=== PATIENT | female | born 1940 | race Caucasian/White ===

== ENCOUNTER 2016-07-13 05:36 | Day surgery (SDC) | payer OTHER ==
[2016-07-12 17:34] VITALS: BMI 33.6
[2016-07-13] MEDS ORDERED: ceFAZolin SODIUM 1 GM VIAL ONE (07:27)
[2016-07-13] MEDS ORDERED: KETOROLAC TROMETHAMINE 30 MG/1 ML VIAL ONE (07:27)
[2016-07-13] MEDS ORDERED: ONDANSETRON 4 MG/2 ML VIAL ONE ×2 (07:27→13:33)
[2016-07-13] MEDS ORDERED: SUCCINYLCHOLINE CHLORIDE 200 MG/10 ML VIAL ONE (07:27)
[2016-07-13] MEDS ORDERED: SODIUM CHLORIDE 0.9% P/F 10 ML VIAL IJ ONE (07:27)
[2016-07-13] MEDS ORDERED: ePHEDrine SULFATE 50 MG/1 ML AMPULE ONE (07:27)
[2016-07-13] MEDS ORDERED: DEXAMETHASONE SOD PHOSPHATE 4 MG/1 ML VIAL ONE (07:27)
[2016-07-13] MEDS ORDERED: ROCURONIUM BROMIDE 50 MG/5 ML VIAL ONE (07:27)
[2016-07-13] MEDS ORDERED: PHENYLEPHRINE HCL 10 MG/1 ML SINGLE DOSE VIAL ONE (07:27)
[2016-07-13] MEDS ORDERED: PROPOFOL 20 ML ONE (07:27)
[2016-07-13] MEDS ORDERED: MIDAZOLAM HCL 2 MG/2 ML SINGLE DOSE VIAL ONE (07:28)
[2016-07-13] MEDS ORDERED: ceFAZolin SODIUM 1 GM VIAL IVPB ONE (08:20)
[2016-07-13] MEDS ORDERED: NEOSTIGMINE METHYLSULFATE 0.5 MG/ML - 10 ML MDV ONE (10:32)
[2016-07-13] MEDS ORDERED: GLYCOPYRROLATE 0.2 MG/1 ML VIAL ONE (10:32)
[2016-07-13] MEDS ORDERED: BUPIVACAINE HCL/PF 0.5% (5MG/ML) 10 ML VIAL IJ ONE (10:51)
--- NOTE | 2016-07-13 11:12 | HP ---
History & Physical Update - History History: No Change - Physical Physical: No Change - Assessment Assessment: No Change - Plan Plan: No Change
--- NOTE | 2016-07-13 11:19 | OP ---
Operative Note - Note: Operative Date: 07/13/16 Pre-Operative Diagnosis: Incarcerated ventral, (left sided spigelian) hernia. Operation: Repair of incarcerated ventral , ( left spigelian ) hernia , with ventralite mesh , and lysisof adhesions. Findings: Incarcerated left sided ventral, ( Spigelian) hernia, with incarcerated omentum , of significant amount within the hernial sac. Omental and peritoneal adhesions. Implants: Ventralite mesh. Surgeon: Rosalina Castanon Anesthesiologist/HOSPITALITY ASSOCIATE: Shirley Silva Anesthesia: General Specimens Removed: Hernial sac Estimated Blood Loss (mls): 10 Operative Report Dictated: Yes
[2016-07-13] MEDS ORDERED: oxyCODONE HCL 5 MG TABLET PO PRN (11:45)
[2016-07-13] MEDS ORDERED: ONDANSETRON 4 MG/2 ML VIAL IVPUSH PRN (11:45)
[2016-07-13] MEDS ORDERED: BSS (NA/CA/MG/K) BALANCED SALT SOLUTION OPHTH SOLN 15 ML BOTTLE ONE (13:28)
[2016-07-13 14:26] VITALS: TEMP 97.4
[2016-07-13 17:15] VITALS: BP 152/96; PULSE 95
--- NOTE | 2016-07-16 12:03 | OP ---
DATE OF OPERATION: 07/13/2016 PREOPERATIVE DIAGNOSIS: Incarcerated ventral hernia (left-sided Spigelian hernia). POSTOPERATIVE DIAGNOSIS: Incarcerated left-sided ventral (Spigelian) hernia with extensive adhesions. SURGEON: Roni Castanon MD ANESTHESIA: General. OPERATIVE PROCEDURE: Repair of incarcerated ventral (left Spigelian) hernia with Ventralight mesh and lysis of adhesions. OPERATIVE DESCRIPTION: This 75-year-old woman had a mass in the left side of her abdomen going toward the flank for the last 2-3 years, increasing in size. A CAT scan suggested this was a Spigelian hernia. This was very lateral and was not reducible. The patient was brought in for laparoscopic/open repair of the incarcerated Spigelian hernia. Consent was obtained. Risks, benefits, and complications had been discussed with the patient. The patient was brought to the operating room. General anesthesia was administered. Booker catheter was placed in the bladder and was removed right after the procedure. A timeout was called. The left side of the abdomen was elevated with a couple of sheets and a bag. The abdomen was painted and draped. The patient was given 1 g of Ancef. Incision was made at the infraumbilical portion of the umbilicus, deepened through the skin, subcutaneous tissue and the linea alba. The peritoneum was incised and a 10-12-mm laparoscopic trocar of the Cassia type was introduced into the abdominal cavity. The abdomen was inflated with carbon dioxide at 6 L per minute with measured intraabdominal pressure of 15 mmHg. A 5-mm, 30 degree camera was introduced into the abdominal cavity. On examination, there were some omental adhesions to the anterior abdominal wall. A large piece of omentum and fat was noted entering the defect in the lateral lower quadrant of the abdomen and getting into the hernia sac. Another 5-mm trocar was inserted in the midline below the umbilicus , between the umbilicus and the pubic symphysis, and a third 5-mm trocar was inserted in the epigastric region in the midline. The content of the hernia, which was the omentum, was then gradually reduced into the abdominal cavity. There was a significant amount of fat and omentum within the hernia sac. After reduction, a large hernial sac, that was noted dissecting the abdominal wall and a large defect about the lateral edge of the rectus.. The peritoneum was dissected around the edge of the hernia defect and the sac was completely excised and sent to Pathology. This was removed through the abdominal cavity. The large mesh was then used to cover the defect. This large mesh, 10 x 8-cm Ventralight mesh, was used to cover the defect. Prior to this, the defect was approximated with no. 1 Prolene sutures passed through the skin. This was passed under the skin, creating a tunnel, and then introducing on either side of the defect, through the suture passer, bringing the sutures into the abdominal cavity and then passed across to the opposite side and brought out through the abdominal cavity and then passed under the skin so that a complete buckland was made. Two such sutures were obtained and were 2 cm apart. Once this was done, the abdomen was deflated and the abdominal defect was repaired with a no. 1 Prolene suture, bringing the two edges together. Once this was done, the Ventralight mesh was rolled , and introduced into the abdomen,such that the balloon that was to be inflated,to keep the mesh against the abdominal wall. This was rolled and introduced through the 10-mm defect into the peritoneal cavity. With a suture passer, , the central portion of the distendable balloon was brought out through the abdominal cavity through the center of the defect. The balloon on the undersurface of the mesh was then inflated. It was expanding the mesh and holding it against the anterior abdominal. The mesh was then anchored to the abdominal wall with interrupted ProTack joe, one on the peripheral surface of the mesh, another between the center and the periphery of the mesh in a circular fashion. The mesh was adequately placed against the abdominal wall with enough overlay on either side, well beyond the edge of the defect. The inflatable balloon was then completely withdrawn through the umbilical report. The repair was adequately performed. There were omental adhesions to the anterior abdominal wall which were then lysed with the Endoscissors. Two more 5-mm tackers had to be placed in the left side of the abdomen, one in the left upper quadrant , and left lower quadrant of the abdomen to facilitate placement of the ProTack sutures. Once the mesh was adequately placed, the rest of the abdomen was normal. The omentum was then placed over the small bowel. The instruments were withdrawn under direct vision. The linea alba and midline was approximated with interrupted and [id number] 2-0 Vicryl sutures. Marcaine 0.5% was injected into the wound. The skin was approximated with buried interrupted 4-0 Biosyn sutures. Dermabond was applied at the skin edges. The patient tolerated the procedure well, was extubated and sent to the recovery room in satisfactory and stable condition. Amando GONZALEZ/[id number] CC: MD RULA Bailey
--- NOTE | 2016-07-16 13:50 | PATH ---
Surgical Pathology Report Patient Name: SP WELSH [facility]. Rec. #: [id number] /Age/Gender: 1940 (Age: 75) / F Account: [id number] Location: [facility] Taken: 07/13/2016 Received: 07/13/2016 Reported: 07/16/2016 Physicians: Roni Castanon M.D. Specimen(s) Received HERNIA SAC Clinical History Abdominal ventral hernia left spigelian hernia Final Diagnosis SOFT TISSUE, ABDOMINAL WALL, EXCISION: FIBROMEMBRANOUS TISSUE CONSISTENT WITH HERNIA SAC, AND BENIGN ADIPOSE TISSUE. Electronically Signed Lj Bartholomew M.D. Gross Description Received in formalin, labeled "hernia sac," is a 5.2 x 4.3 x 0.9 cm aggregate of longoria thomas to yellow, irregular portions of fibromembranous tissue and attached fat. No discrete masses or areas of hemorrhage or necrosis are identified. Customer Counter Associate sections are submitted in one cassette. 07/13/201607/13/2016
== END 2016-07-13 17:30 | disposition home or self-care (01) ==
LOC: JASU-SURG 05:36
PROVIDERS: ATTEND Specialist
PROC: 0WUF4JZ Supplement Abdominal Wall with Synthetic Substitute, Percutaneous Endoscopic Approach (ICD-10-PCS; principal; 2016-07-13 08:00)
DX: K43.6 Other and unspecified ventral hernia with obstruction, without gangrene (principal)
CPT/HCPCS: 88302-TC; 94760

== ENCOUNTER 2016-08-09 15:56 | Emergency (ER) | payer OTHER ==
--- NOTE | 2016-08-09 16:06 | PDOC ---
Rapid Medical Evaluation Time Seen by Provider: 08/09/16 16:03 Medical Evaluation: Allergies Allergy/AdvReac Type Severity Reaction Status Date / Time No Known Allergies Allergy Verified 07/12/16 17:30 08/09/16 16:03 I have performed a brief in-person evaluation of this patient. The patient presents with a chief complaint of: s/p hernia, now with LLQ abdominal pain Pertinent physical exam findings: tender LLQ I have ordered the following: labs and CT abd/pelvis The patient will proceed to the ED for further evaluation
[2016-08-09 16:09] VITALS: TEMP 98.3; BMI 33.6
[2016-08-09] MEDS ORDERED: SODIUM CHLORIDE 1,000 ML IV SCH (16:15)
--- NOTE | 2016-08-09 16:59 | PDOC ---
History of Present Illness - General History Source: Patient Exam Limitations: No Limitations - History of Present Illness Initial Comments: 08/09/16 17:18 75-year-old female with history of hypertension, status post left ventral hernia repair on July 13 presents to the emergency department for 2 weeks of burning left lower quadrant pain worse with movement. Denies nausea, vomiting, dysuria. Had a last bowel movement movement today. Denies fevers or chills or sick contacts. Patient reports a constant burning pain. Denies dysuria. <Yong Buckley - Last Filed: 08/09/16 20:28> - General History Source: Patient Exam Limitations: No Limitations <Pierre Ko - Last Filed: 08/09/16 21:22> - General Chief Complaint: Pain Stated Complaint: PCP SENT, PAIN Time Seen by Provider: 08/09/16 16:03 Past History <Yong Buckley - Last Filed: 08/09/16 20:28> - Past Medical History Anemia: No Asthma: No Cancer: No Cardiac Disorders: No CVA: No COPD: No CHF: No Dementia: No Diabetes: No GI Disorders: No Disorders: No HTN: Yes Hypercholesterolemia: No Liver Disease: No Seizures: No Thyroid Disease: No - Surgical History Abdominal Surgery: Yes (HERNIA) Cholecystectomy: Yes - Psycho/Social/Smoking Cessation Hx Anxiety: No Suicidal Ideation: No Smoking Status: Yes Smoking History: Former smoker Have you smoked in the past 12 months: No Number of Cigarettes Smoked Daily: 0 If you are a former smoker, when did you quit?: 40 years ago Information on smoking cessation initiated: No Hx Alcohol Use: No Drug/Substance Use Hx: No Substance Use Type: None <Pierre Ko - Last Filed: 08/09/16 21:22> - Past Medical History Allergies/Adverse Reactions: Allergies Allergy/AdvReac Type Severity Reaction Status Date / Time No Known Allergies Allergy Verified 08/09/16 16:04 Home Medications: Ambulatory Orders Losartan Potassium [Cozaar -] 25 mg PO DAILY 07/12/16 Metoprolol Succinate [Toprol Xl] 100 mg PO DAILY 07/12/16 Ibuprofen [Motrin -] 600 mg PO TID PRN #21 tablet 08/09/16 Review of Systems - Review of Systems Able to Perform ROS?: Yes Comments:: 08/09/16 17:19 GENERAL/CONSTITUTIONAL: No fever or chills. No weakness. HEAD, EYES, EARS, NOSE AND THROAT: No change in vision. No ear pain or discharge. No sore throat. CARDIOVASCULAR: No chest pain or shortness of breath. RESPIRATORY: No cough, wheezing, or hemoptysis. GASTROINTESTINAL: (+) abdominal pain, No nausea, vomiting, diarrhea or constipation. GENITOURINARY: No dysuria, frequency, or change in urination. MUSCULOSKELETAL: No joint or muscle swelling or pain. No neck or back pain. SKIN: No rash NEUROLOGIC: No headache, vertigo, loss of consciousness, or change in strength/ sensation. ENDOCRINE: No increased thirst. No abnormal weight change. HEMATOLOGIC/LYMPHATIC: No anemia, easy bleeding, or history of blood clots. ALLERGIC/IMMUNOLOGIC: No hives or skin allergy. <Yong Buckley - Last Filed: 08/09/16 20:28> *Physical Exam - Vital Signs Last Vital Signs Temp Pulse Resp BP Pulse Ox 98.3 F 71 18 176/88 92 L 08/09/16 16:05 08/09/16 16:05 08/09/16 16:05 08/09/16 16:05 08/09/16 16:05 - Physical Exam Comments: 08/09/16 17:13 GENERAL: Awake, alert, and fully oriented, in no acute distress HEAD: No signs of trauma EYES: PERRLA, EOMI, sclera anicteric, conjunctiva clear ENT: Auricles normal inspection, hearing grossly normal, nares patent, oropharynx clear without exudates. Moist mucosa NECK: Normal ROM, supple, no lymphadenopathy, JVD, or masses LUNGS: Breath sounds equal, clear to auscultation bilaterally. No wheezes, and no crackles HEART: Regular rate and rhythm, normal S1 and S2, no murmurs, rubs or gallops ABDOMEN: (+) Tenderness to palpation left lower quadrant, no rebounding, no guarding EXTREMITIES: Normal range of motion, no edema. No clubbing or cyanosis. No cords, erythema, or tenderness NEUROLOGICAL: Cranial nerves II through XII grossly intact. Normal speech, normal gait SKIN: (+) Healing well granulated incision sites on her abdomen. Warm, Dry, normal turgor <Yong Buckley - Last Filed: 08/09/16 20:28> - Vital Signs Last Vital Signs Temp Pulse Resp BP Pulse Ox 98.3 F 71 18 176/88 92 L 08/09/16 16:05 08/09/16 16:05 08/09/16 16:05 08/09/16 16:05 08/09/16 16:05 <Pierre Ko - Last Filed: 08/09/16 21:22> ED Treatment Course - LABORATORY CBC & Chemistry Diagram: 08/09/16 16:44 08/09/16 17:42 - ADDITIONAL ORDERS Additional order review: 08/09/16 16:44 RBC 4.59 MCV 88.7 MCHC 34.5 RDW 13.2 MPV 8.0 Neutrophils % 46.2 Lymphocytes % 36.2 Monocytes % 11.4 H Eosinophils % 5.4 H Basophils % 0.8 <Yong Buckley - Last Filed: 08/09/16 20:28> - LABORATORY CBC & Chemistry Diagram: 08/09/16 16:44 08/09/16 17:42 <Pierre Ko - Last Filed: 08/09/16 21:22> Medical Decision Making - Medical Decision Making 08/09/16 20:23 Dr. Castanon paged. 08/09/16 20:28 Dr. Castanon called into the emergency department. Case discussed. <Yong Buckley - Last Filed: 08/09/16 20:28> - Medical Decision Making 08/09/16 16:58 A portion of this note was documented by scribe services under my direction. I have reviewed the details of the note, within reason, and agree with the documentation with the following case summary and management plan written by me. Patient treated in the ED. Nursing notes are reviewed and incorporated into the medical decision-making. Vital signs reviewed. Peripheral IV access obtained by the nurse, laboratory studies are drawn and sent, reviewed and interpreted by myself. Vital Signs Temp Pulse Resp BP Pulse Ox 98.3 F 71 18 176/88 92 L 08/09/16 16:05 08/09/16 16:05 08/09/16 16:05 08/09/16 16:05 08/09/16 16:05 75-year-old female with history of hypertension, status post left ventral hernia repair on July 13 presents to the emergency department for 2 weeks of burning left lower quadrant pain worse with movement. Denies nausea, vomiting, dysuria. Had a last bowel movement movement today. Denies fevers or chills or sick contacts. Patient reports a constant burning pain. Denies dysuria. The skin incision sites appear well healing and there is no evidence of rash or cellulitis at this time. We'll however perform a CAT scan to rule out diverticulitis or competitions from surgery. Patient declines any pain medications at this time. Labs, CAT scan, urinalysis and reassess. 08/09/16 21:21 CT results reviewed. This small amount of adjacent soft tissue thickening that could represent inflammatory changes. Labs reviewed. I discussed the case with Dr. Castanon. States that the inflammatory changes likely secondary to postsurgical. No infection at this time. No white count. He recommended Motrin and follow-up. I given the plan and results of the patient. He verbalizes an understanding agrees with plan. He is likely postoperative pain and inflammation at this time. Return precautions were given including fevers, uncontrollable pain. I discussed the physical exam findings, ancillary test results and final diagnoses with the patient. I answered all of the patient's questions. The patient was satisfied with the care received and felt comfortable with the discharge plan and treatment plan. The patient will call their primary care physician within 24 hours to arrange follow-up and will return to the Emergency Department with any new, persistant or worsening symptoms. <Pierre Ko - Last Filed: 08/09/16 21:22> *DC/Admit/Observation/Transfer - Attestations Scribe Attestion: 08/09/16 17:31 Documentation prepared by Yong Buckley, acting as director medical surgical for Pierre Ko MD. <Yong Buckley - Last Filed: 08/09/16 20:28> - Discharge Dispostion Admit: No <Pierre Ko - Last Filed: 08/09/16 21:22> Diagnosis at time of Disposition: Postoperative pain - Discharge Dispostion Disposition: HOME Condition at time of disposition: Improved - Prescriptions Prescriptions: Ibuprofen [Motrin -] 600 mg PO TID PRN #21 tablet PRN Reason: Abdominal Pain - Referrals Referrals: Tonia Stokes MD [Primary Care Provider] - Rosalina Castanon MD [Staff Physician] - - Patient Instructions Printed Discharge Instructions: DI for Postoperative Pain Additional Instructions: Please take 600 mg ibuprofen every 8 hours for the pain. Please follow up with Dr. Castanon next week. If you have fevers, uncontrollable pain, persistent vomiting, please return to the ER.
[2016-08-09 17:05] LABS: BASOPHIL 0.8 % (0-2.0); EOSINOPHIL 5.4 % (0-4.5); MCH 30.6 pg (25.7-33.7); MCHC 34.5 g/dl (32.0-36.0); MEAN CELL VOLUME 88.7 fl (80-96); NEUTROPHILS 46.2 % (42.8-82.8); PLATELET COUNT 292 K/MM3 (134-434); RDW 13.2 % (11.6-15.6); WHITE BLOOD COUNT 7.1 K/mm3 (4.0-10.0)
[2016-08-09 18:21] LABS: URINE APPEARANCE SLCLOUDY; URINE BILIRUBIN NEGATIVE (NEGATIVE); URINE BLOOD NEGATIVE (NEGATIVE); URINE COLOR STRAW; URINE GLUCOSE (UA) NEGATIVE (NEGATIVE); URINE KETONE NEGATIVE (NEGATIVE); URINE LEUK ESTERASE NEGATIVE (NEGATIVE); URINE NITRITE NEGATIVE (NEGATIVE); URINE PROTEIN NEGATIVE (NEGATIVE); URINE UROBILINOGEN NEGATIVE E.U./dl (0.2-1.0)
[2016-08-09 18:29] LABS: ALBUMIN 3.6 g/dl (3.4-5.0); ALK PHOS 84 U/L (45-117); ANION GAP 10 (8-16); BILIRUBIN,TOTAL 0.5 mg/dL (0.2-1.0); CALCIUM 9.3 mg/dL (8.5-10.1); CO2 25 mmol/L (21-32); CREATININE 0.7 mg/dL (0.55-1.02); GLUCOSE,RANDOM 92 mg/dL (74-106); SGPT/ALT 24 U/L (12-78)
[2016-08-09 18:36] LABS: SGOT/AST 16 U/L (15-37)
[2016-08-09] MEDS ORDERED: IBUPROFEN 600 MG TABLET (FP) PO ONE ×2 (20:53→21:04)
[2016-08-09 21:11] VITALS: BP 148/76; PULSE 74
== END 2016-08-09 21:10 | disposition home or self-care (01) ==
LOC: JER 15:56
DX: G89.18 Other acute postprocedural pain (principal); I10 Essential (primary) hypertension; Z87.891 Personal history of nicotine dependence
CPT/HCPCS: 36415; 74177-TC; 80053; 81003; 83690; 85025; 99285-25

== ENCOUNTER 2017-11-11 09:19 | Day surgery (SDC) | payer OTHER ==
--- NOTE | 2017-11-11 07:16 | HP ---
Admitting History and Physical - Admission Chief Complaint: right knee osteoarthritis x years History of Present Illness: 77-year-old female presenting in regard to her right knee. Long-standing history of right knee osteoarthritis. Patient complains of pain, limited range of motion, difficulty ambulating, and difficulties with activities of daily living. Patient has failed conservative treatment measures including PO medications, activity modification, exercise program, and injections. As patient as failed conservative treatment measures, she wishes to proceed with surgical intervention right partial knee arthroplasty -medial compartment MAKOplasty. History Source: Patient - Past Medical History Cardiovascular: Yes: HTN - Past Surgical History Additional Past Surgical History: See written history & physical. - Smoking History Smoking history: Former smoker Have you smoked in the past 12 months: No Aproximately how many cigarettes per day: 0 If you are a former smoker, when did you quit?: 40 years ago - Alcohol/Substance Use Hx Alcohol Use: No Home Medications - Allergies Allergies/Adverse Reactions: Allergies Allergy/AdvReac Type Severity Reaction Status Date / Time No Known Allergies Allergy Verified 10/31/17 17:34 - Home Medications Home Medications: Ambulatory Orders Losartan Potassium [Cozaar -] 25 mg PO DAILY 07/12/16 Metoprolol Succinate [Toprol Xl] 100 mg PO DAILY 07/12/16 Physical Examination Constitutional: Yes: Well Nourished, No Distress Eyes: Yes: Conjunctiva Clear HENT: Yes: Atraumatic, Normocephalic Neck: Yes: Supple Cardiovascular: Yes: Regular Rate and Rhythm Respiratory: Yes: Regular Gastrointestinal: Yes: Soft ...Rectal Exam: Yes: Deferred Musculoskeletal: Yes: Joint Stiffness (right knee), Joint Swelling (right knee) Assessment/Plan 77-year-old female presenting in regard to her right knee. Long-standing history of right knee osteoarthritis. Patient complains of pain, limited range of motion, difficulty ambulating, and difficulties with activities of daily living. Patient has failed conservative treatment measures including PO medications, activity modification, exercise program, and injections. As patient as failed conservative treatment measures, she wishes to proceed with surgical intervention. Pros, cons, risks, benefits, and alternatives of a right partial knee arthroplasty, medial comparment MAKOplasty was discussed with the patient at length. Patient confirms her understanding and wishes to proceed with a right partial knee arthroplasty, medial compartment MAKOplasty.
[~2017-11-11 09:19] MED LIST: CEFAZOLIN 2 GM in DEXTROSE 5%-WATER - 50 ML IVPB ONE; CELECOXIB 200 MG CAPSULE PO ONE; GABAPENTIN 300 MG CAPSULE (FP) PO ONE; PANTOPRAZOLE 40 MG TABLET (FP) PO ONE; ROPIVICAINE 0.2%/MORPH PF/KETOROLAC - 51ML DISP.SYRINGE IA ONE; TRANEXAMIC ACID 1000 MG/10 ML VIAL IVPUSH ONE; oxyCODONE HCL 10 MG SUSTAINED ACTING TABLET PO ONE
[2017-11-11] MEDS ORDERED: PANTOPRAZOLE 40 MG TABLET (FP) ONE (09:52)
[2017-11-11] MEDS ORDERED: GABAPENTIN 300 MG CAPSULE (FP) ONE (09:52)
[2017-11-11] MEDS ORDERED: oxyCODONE HCL 10 MG SUSTAINED ACTING TABLET ONE (09:52)
[2017-11-11] MEDS ORDERED: CELECOXIB 200 MG CAPSULE ONE (09:52)
[2017-11-11] MEDS ORDERED: VANCOMYCIN 1,000 MG VIAL (RESTRICTED TO ID ONLY) ONE (10:06)
[2017-11-11] MEDS ORDERED: ceFAZolin SODIUM 1 GM VIAL ONE ×2 (10:06→12:31)
[2017-11-11] MEDS ORDERED: TRANEXAMIC ACID 1000 MG/10 ML VIAL ONE ×3 (10:06→14:33)
[2017-11-11] MEDS ORDERED: ROPIVICAINE 0.2%/MORPH PF/KETOROLAC - 51ML DISP.SYRINGE IA ONE ×2 (10:08→14:17)
[2017-11-11 10:23] VITALS: BMI 34.3
[2017-11-11] MEDS ORDERED: PROPOFOL 20 ML ONE ×2 (10:51→11:39)
[2017-11-11] MEDS ORDERED: LIDOCAINE HCL/PF 2% SDV 5ML VIAL ONE (10:52)
[2017-11-11] MEDS ORDERED: MIDAZOLAM HCL 2 MG/2 ML SINGLE DOSE VIAL ONE (10:54)
[2017-11-11] MEDS ORDERED: DEXAMETHASONE SOD PHOSPHATE/PF 10 MG/ML SDV ONE (10:54)
[2017-11-11] MEDS ORDERED: ROPIVACAINE HCL 0.5% 30ML VIAL ONE (10:55)
[2017-11-11] MEDS ORDERED: ePHEDrine SULFATE 50 MG/1 ML AMPULE ONE (12:42)
[2017-11-11] MEDS ORDERED: ONDANSETRON 4 MG/2 ML VIAL ONE (13:08)
[2017-11-11] MEDS ORDERED: DEXAMETHASONE SOD PHOSPHATE 4 MG/1 ML VIAL ONE (13:08)
[2017-11-11] MEDS ORDERED: KETOROLAC TROMETHAMINE 30 MG/1 ML VIAL ONE (13:09)
[2017-11-11] MEDS ORDERED: TRANEXAMIC ACID 1000 MG/10 ML VIAL IVPB ONE ×2 (13:20→14:17)
[2017-11-11] MEDS ORDERED: VANCOMYCIN 1,000 MG VIAL (RESTRICTED TO ID ONLY) IVPB ONE ×2 (13:24→14:17)
[2017-11-11] MEDS ORDERED: oxyCODONE HCL 5 MG TABLET PO PRN ×2 (15:19)
[2017-11-11] MEDS ORDERED: ONDANSETRON 4 MG/2 ML VIAL IVPUSH PRN ×2 (15:19→15:52)
[2017-11-11] MEDS ORDERED: LACTATED RINGERS SOLUTION 1,000 ML IV SCH ×2 (15:30→16:00)
[2017-11-11] MEDS ORDERED: ONDANSETRON 4 MG TABLET PO ONE (15:40)
[2017-11-11] MEDS ORDERED: MAG HYDROX/AL HYDROX/SIMETH 30 ML UNIT-DOSE CUP PO PRN (15:52)
[2017-11-11] MEDS ORDERED: ACETAMINOPHEN 1000 MG/100 ML VIAL (NON FORMULARY) IVPB ONE ×2 (15:57→16:00)
[2017-11-11] MEDS ORDERED: traMADol HCL 50 MG TABLET PO ONE (16:05)
--- NOTE | 2017-11-11 16:27 | OP ---
Operative Note - Note: Operative Date: 11/11/17 Pre-Operative Diagnosis: Right knee OA Operation: Right JOSE LUIS medial UKA Surgeon: Amrik Sequeira Metal Neutralizer: Lilly Coelho Anesthesia: General Estimated Blood Loss (mls): 100
[2017-11-11] MEDS: CEFAZOLIN 2 GM/D5W 2 GM/50 ML ML IVPB SCH (18:00)
[2017-11-11] MEDS: GABAPENTIN 300 MG CAPSULE (FP) PO SCH (21:46)
[2017-11-11] MEDS: CELECOXIB 200 MG CAPSULE PO SCH (21:46)
[2017-11-11] MEDS: traMADol HCL 50 MG TABLET PO SCH (21:46)
[2017-11-11] MEDS: ASCORBIC ACID 500 MG TABLET (FP) PO SCH (21:46)
[2017-11-11] MEDS: ACETAMINOPHEN 325 MG TABLET (FP) PO SCH (21:47)
[2017-11-11] MEDS: KETOROLAC TROMETHAMINE 30 MG/1 ML VIAL IVPUSH SCH (21:48)
[2017-11-11 23:21] VITALS: TEMP 97.6
[2017-11-12] MEDS ORDERED: DEXAMETHASONE SOD PHOSPHATE 10 MG/1 ML VIAL IVPB ONE
[2017-11-12] MEDS: CEFAZOLIN 2 GM/D5W 2 GM/50 ML ML IVPB SCH (01:49)
[2017-11-12] MEDS: KETOROLAC TROMETHAMINE 30 MG/1 ML VIAL IVPUSH SCH ×2 (04:16→09:53)
[2017-11-12] MEDS: traMADol HCL 50 MG TABLET PO SCH ×3 (04:16→11:00)
[2017-11-12] MEDS: ACETAMINOPHEN 325 MG TABLET (FP) PO SCH ×2 (04:17→09:55)
[2017-11-12] MEDS ORDERED: ASPIRIN 325 MG TABLET PO SCH (08:00)
[2017-11-12 09:00] LABS: HEMATOCRIT 36.5 % (32.4-45.2); HEMOGLOBIN 12.9 GM/dl (10.7-15.3); MCHC 35.3 g/dl (32.0-36.0); MEAN CELL VOLUME 90.6 fl (80-96); MEAN PLT VOLUME 8.4 fl (7.5-11.1); PLATELET COUNT 221 K/MM3 (134-434); RBC 4.03 M/mm3 (3.60-5.2); RDW 12.6 % (11.6-15.6); WHITE BLOOD COUNT 9.5 K/mm3 (4.0-10.8)
[2017-11-12 09:06] VITALS: BP 139/52; PULSE 92
[2017-11-12 09:21] LABS: ANION GAP 8 (8-16); BLOOD UREA NITROGEN 15 mg/dl (7-18); CALCIUM 8.3 mg/dl (8.4-10.2); CHLORIDE 104 mmol/L (98-107); CO2 25 mmol/L (22-28); CREATININE 0.8 mg/dl (0.6-1.3); GLUCOSE,RANDOM 151 mg/dl (74-106); POTASSIUM 3.7 mmol/L (3.5-5.1); SODIUM 137 mmol/L (136-145)
[2017-11-12] MEDS: CELECOXIB 200 MG CAPSULE PO SCH (09:54)
[2017-11-12] MEDS: ASCORBIC ACID 500 MG TABLET (FP) PO SCH (09:56)
[2017-11-12] MEDS: GABAPENTIN 300 MG CAPSULE (FP) PO SCH (09:56)
[2017-11-12] MEDS ORDERED: PANTOPRAZOLE 40 MG TABLET (FP) PO SCH (10:00)
[2017-11-12] MEDS ORDERED: MULTIVITAMINS (DAILY MVI) TABLET (FP) PO SCH (10:00)
[2017-11-12] MEDS ORDERED: LOSARTAN POTASSIUM 25 MG TABLET PO SCH (10:00)
--- NOTE | 2017-11-12 10:45 | PN ---
Progress Note, Physician Chief Complaint: day #1 s/p right partial knee replacement - Current Medication List Current Medications: Active Medications Acetaminophen (Tylenol -) 650 mg PO Q6H [facility] Last Admin: 11/12/17 09:55 Dose: 650 mg Al Hydroxide/Mg Hydroxide (Mylanta Oral Suspension -) 30 ml PO Q4H PRN PRN Reason: DYSPEPSIA Ascorbic Acid (Vitamin C -) 500 mg PO BID [facility] Last Admin: 11/12/17 09:56 Dose: 500 mg Aspirin (Asa -) 325 mg PO DAILY@0800 [facility] Last Admin: 11/12/17 08:09 Dose: 325 mg Celecoxib (Celebrex -) 200 mg PO BID [facility] Last Admin: 11/12/17 09:54 Dose: 200 mg Gabapentin (Neurontin -) 300 mg PO BID [facility] Stop: 11/14/17 21:59 Last Admin: 11/12/17 09:56 Dose: 300 mg Lactated Ringer's (Lactated Ringers Solution) 1,000 mls @ 125 mls/hr IV ASDIR [facility] Last Admin: 11/11/17 17:00 Dose: 125 mls/hr Ketorolac Tromethamine (Toradol Injection -) 15 mg IVPUSH Q6H [facility] Stop: 11/12/17 16:01 Last Admin: 11/12/17 09:53 Dose: 15 mg Losartan Potassium (Cozaar -) 25 mg PO DAILY [facility] Last Admin: 11/12/17 09:56 Dose: 25 mg Metoprolol Succinate (Toprol Xl -) 100 mg PO DAILY [facility] Last Admin: 11/12/17 09:55 Dose: 100 mg Multivitamins/Minerals/Vitamin C (Tab-A-Vit -) 1 tab PO DAILY [facility] Last Admin: 11/12/17 09:56 Dose: 1 tab Ondansetron HCl (Zofran Injection) 4 mg IVPUSH Q6H PRN PRN Reason: NAUSEA Oxycodone HCl (Roxicodone -) 5 mg PO Q3H PRN PRN Reason: PAIN LEVEL 1-5 Oxycodone HCl (Roxicodone -) 10 mg PO Q3H PRN PRN Reason: PAIN LEVEL 6-10 Pantoprazole Sodium (Protonix -) 40 mg PO DAILY [facility] Last Admin: 11/12/17 09:56 Dose: 40 mg Senna/Docusate Sodium (Pericolace -) 1 tablet PO BID [facility] Tramadol HCl (Ultram -) 50 mg PO Q6H [facility] Last Admin: 11/12/17 09:55 Dose: 50 mg - Objective Vital Signs: Vital Signs Temperature 97.6 F 11/12/17 06:32 Pulse Rate 92 H 11/12/17 09:05 Respiratory Rate 18 11/12/17 09:05 Blood Pressure 139/52 11/12/17 09:05 O2 Sat by Pulse Oximetry (%) 96 11/12/17 09:05 Labs: CBC, BMP 11/12/17 08:16 11/12/17 08:16 Assessment/Plan Doing well, ambulating, complains of no pain. Plan is for D/C today
--- NOTE | 2017-11-12 10:59 | PN ---
Progress Note (short form) - Note Progress Note: Pt seen and examined. Comfortable. AVSS Selected Entries 11/12/17 11/12/17 06:32 09:05 Temperature 97.6 F Pulse Rate 88 92 H Respiratory 20 18 Rate Blood Pressure 158/80 139/52 O2 Sat by Pulse 96 Oximetry (%) Oxygen Delivery Nasal Cannula Method Laboratory Tests 11/12/17 11/12/17 08:16 08:16 WBC 9.5 Hgb 12.9 Hct 36.5 Plt Count 221 Sodium 137 Potassium 3.7 Chloride 104 Carbon Dioxide 25 Anion Gap 8 BUN 15 Creatinine 0.8 Random Glucose 151 H Calcium 8.3 L Gen: NAD RLE: c/d/i, NVID A/P s/p R knee medial MAKOplasty PT/OOB - WBAT RLE D/C home after PT
--- NOTE | 2017-11-12 12:16 | DS ---
Physical Examination Vital Signs: Vital Signs Temperature 97.6 F 11/12/17 06:32 Pulse Rate 92 H 11/12/17 09:05 Respiratory Rate 18 11/12/17 09:05 Blood Pressure 139/52 11/12/17 09:05 O2 Sat by Pulse Oximetry (%) 96 11/12/17 09:05 Labs: CBC, BMP 11/12/17 08:16 11/12/17 08:16 Discharge Summary Reason For Visit: RIGHT KNEE OSTEOARTHRITIS Current Active Problems Osteoarthritis of right knee (Acute) Procedures: Principal: right knee medial MAKOplasty Hospital Course: Admitted for elective surgery. Procedure performed without complications. Pt received postoperative antibiotic prophylaxis and DVT ppx. Ambulated with physical therapy. Stable for discharge home with outpatient followup. Condition: Stable - Instructions Diet, Activity, Other Instructions: Dr. Sequeira - Knee Replacement Instructions Keep the Aquacel dressing on until removed by Dr. Sequeira in 10-14 days - it is antibacterial and waterproof and you can shower with it on. Call the office for a follow-up appointment with Dr. Sequeira in 10-14 days. [phone] Take one Aspirin 325mg daily for 6 weeks to prevent blood clots in your legs. After 6 weeks go back to taking 81mg daily. Take Pantoprazole 40mg daily for 6 weeks to protect against heartburn and ulcers. Take Cephalexin (antibiotic) 3x/day for 10 days to help prevent skin infection. Take Celebrex 200mg once daily for 30 days to reduce swelling and inflammation. Take a multivitamin, stool softener, and extra vitamin C supplement daily. For pain: *Mild pain (1-3/10): Take 1 Tramadol tablet every 4 hours as needed. Moderate pain (4-6/10): Take 1 Tramadol tablet and 1 Percocet tablet every 4 hours as needed. Severe pain (7-10/10): Take 1 Tramadol tablet and 2 Percocet tablets every 4 hours as needed. Activity: You can put as much weight on the operative leg as you want. Right after you get home, there will be a physical therapist coming to your house to help you walk around and bend/straighten your knee. After your follow-up appointment, you will be sent for more intensive outpatient physical therapy which will include machines and equipment that the home therapist cannot bring to your house. Always use a walker or cane for balance and to prevent falls. Expect to see swelling/bruising from the operative site all the way down to your toes. Wear the compression stocking on the operative side during the day to minimize how much swelling there is in your foot/ankle. Don't wear the stocking at night. You don't have to wear a stocking on the other side. Disposition: VNS/HOME HEALTH CARE - Home Medications Comprehensive Discharge Medication List: Ambulatory Orders Losartan Potassium [Cozaar -] 25 mg PO DAILY 07/12/16 Metoprolol Succinate [Toprol Xl] 100 mg PO DAILY 07/12/16 Ascorbic Acid [Vitamin C -] 500 mg PO BID tablet 11/12/17 Aspirin [ASA -] 325 mg PO DAILY@0800 tablet 11/12/17 Celecoxib [CeleBREX -] 200 mg PO DAILY #30 capsule 11/12/17 Cephalexin Monohydrate [Keflex -] 500 mg PO TID #30 capsule 11/12/17 Multivitamins [Multivit ([facility] Formulary)] 1 tab PO DAILY tab 11/12/17 Oxycodone HCl/Acetaminophen [Percocet 5-325 mg Tablet] 1 - 2 tab PO Q4H PRN #60 tablet MDD 10 11/12/17 Pantoprazole Sodium [Protonix -] 40 mg PO DAILY #40 tablet.ec 11/12/17 Sennosides/Docusate Sodium [Pericolace -] 1 tablet PO BID tablet 11/12/17 traMADol HCL [Ultram -] 50 mg PO Q4H PRN #42 tablet MDD 6 11/12/17
[2017-11-13] MEDS ORDERED: SENNOSIDES/DOCUSATE COMBO (SENNA PLUS) TABLET (UD) PO SCH (10:00)
--- NOTE | 2017-11-21 07:42 | SPEC ---
DATE OF OPERATION: 11/11/2017 PREOPERATIVE DIAGNOSIS: Right knee medial compartment osteoarthritis. POSTOPERATIVE DIAGNOSIS: Right knee medial compartment osteoarthritis. PROCEDURE: Right knee medial MAKOplasty unicompartmental knee replacement. ATTENDING: Popeye Smith MD BUILDING ENERGY CONSULTANT: MARLINE Vee. ANESTHESIA: General anesthesia. ESTIMATED BLOOD LOSS: 50 mL. COMPLICATIONS: None. SPECIMENS: None. DISPOSITION: The patient was transferred to the PACU in stable condition. IMPLANTS USED: JOSE LUIS size 3 femoral component, size 3 tibial component, 9-mm polyethylene component. INDICATIONS: This is a 77-year-old female who presented to the office complaining of right knee pain. She was seen and examined by Dr. Smith and diagnosed with right knee osteoarthritis. The patient was initially treated with conservative management, but continued to have severe pain and ambulatory dysfunction. She was therefore indicated for surgery. All of her pain was localized to the medial compartment of the knee. The patient denied having any lateral or patellofemoral pain, and her imaging was consistent with primarily medial compartment osteoarthritis. Therefore, she was indicated for a medial unicompartmental MAKOplasty partial knee replacement. The risks, benefits, and alternatives to the surgery were explained to the patient in great detail, and she elected to proceed with the procedure. DESCRIPTION OF PROCEDURE: On the date of surgery, the patient was taken to the operating room and placed on the OR table. Spinal anesthesia was administered by the anesthesiologist. The patient was then positioned supine on the table and all bony prominences were padded. A nonsterile tourniquet was placed on the proximal thigh of the operative leg. The knee was then prepped and draped in the usual sterile fashion and intravenous antibiotics were given for infection prophylaxis. A surgical time out was then performed with the team and the patient's identify, procedure, side, availability of implants and the administration of antibiotics was confirmed. With the knee flexed, an 8 cm incision was made just slightly medial to the midline and carried down through the subcutaneous fat to the underlying retinaculum. Electrocautery was used to achieve hemostasis. A limited medial parapatellar arthrotomy was performed. This was followed by a subperiosteal dissection of the tissue off the proximal medial tibia. A portion of fat pad was removed from under the patellar tendon to improve visualization and a small portion of fat was excised off the distal supracondylar femur. The knee was then flexed further and the anterior horn of the medial meniscus was released. Grade 4 changes were noted diffusely throughout the medial compartment. The lateral compartment appeared to be in good condition. Femoral and tibial checkpoints were then placed in the appropriate location using a mallet. Two parallel bicortical self-drilling pins were placed in the proximal tibia after making stab incisions and bluntly dissecting down to bone. These were positioned approximately 10 cm distal to the tibial tubercle. Two pins were then placed in the proximal femur using the same technique. These were located approximately 10 cm proximal to the superior pole of the patella. The W[employer] navigation arrays were then attached to both the femoral and tibial pins and the lower extremity was then registered to the robotic navigation device using various joint movements, as well as inputting approximately 50 checkpoints. The knee was then taken through a full range of motion with a corrective valgus force applied. Alignment in varus/valgus was measured at 0, 30, 60, 90 and 120 degrees of flexion to determine soft tissue balance in all of these positions. The navigation device showed appropriate tracking of the virtual components on the screen, as well as a graphic representation of the soft tissue balance. The components were repositioned virtually using the software until optimal soft tissue balance was achieved. Once this was accomplished, the final plan was saved and sent to the robot. Retractors were then placed around the distal femur. The robot was brought into the sterile field and registered with the navigation device. The robotic arm with a pipo was then used to remove the appropriate amount of bone from the femur and tibia as per the saved software plan. The knee was then irrigated. Trial components were placed and the knee was taken through a full range of motion to assess soft tissue balance and alignment. The tracking and range of motion were found to be excellent and the soft tissue balance was optimal and according to plan. All trial components were then removed and an Esmarch bandage was used to exsanguinate the leg. The tourniquet was inflated in preparation for cementing. All bony surfaces were cleaned with pulsatile lavage and dried. Bone cement was then prepared on the back table and final components were cemented in place in the usual fashion. Extruded cement was removed. Once the cement had hardened, the knee was taken through a full range of motion to assess stability, balance and patellar tracking. These were found to be optimal. The trial polyethylene was exchanged for a final implant. Medial and inferior osteophytes were debrided off the patella (patelloplasty). The navigation arrays and Braeden pins were removed from the femur and tibia. All wounds were then thoroughly irrigated with normal saline. A periarticular injection was used to locally infiltrate the capsular tissues surrounding the implant and prosthesis. A 1 Vicryl and 0 V-Nicole 180 barbed sutures were used to close the arthrotomy. 2-0 Vicryl sutures were used in the subcutaneous tissues. The skin was closed using both 3-0 V-Nicole 90 suture in a running subcuticular fashion and Dermabond skin adhesive. 4-0 undyed Vicryl and Dermabond skin adhesive was used to close the stab incisions made for the navigation pins. Once this was completed, sterile Aquacel dressings were applied to each incision site. A compressive dressing was applied. The tourniquet was then deflated and the patient was awakened and went to the PACU in stable condition. ADDENDUM: After final implants were placed, the 3-minute dilute Betadine lavage was performed. Following this, the wound was thoroughly irrigated with normal saline via pulsatile lavage, and wound closure was begun. POPEYE SMITH M.D. [id number]
== END 2017-11-12 16:03 | disposition home health service (06) ==
LOC: FASU 09:19 → FM/S 17:24 → FASU 11-12 16:03
PROVIDERS: ATTEND Student in an Organized Health Care Education/Training Program
PROC: 8E0YXBZ Computer Assisted Procedure of Lower Extremity (ICD-10-PCS; 2017-11-11)
PROC: 8E0Y0CZ Robotic Assisted Procedure of Lower Extremity, Open Approach (ICD-10-PCS; 2017-11-11)
PROC: 0SRC0L9 Replacement of Right Knee Joint with Medial Unicondylar Synthetic Substitute, Cemented, Open Approach (ICD-10-PCS; principal; 2017-11-11 12:52)
DX: M17.11 Unilateral primary osteoarthritis, right knee (principal); I10 Essential (primary) hypertension
CPT/HCPCS: 20985; 27446; C1776; S2900; 36415; 73560-TC-RT-FY; 80048; 85027; 94760; 97116-GP; 97162-GP; J0131; J1100

== ENCOUNTER 2017-11-29 11:47 | Emergency (ER) | payer OTHER ==
[2017-11-29 11:57] VITALS: TEMP 98.6; BMI 34.2
[2017-11-29] MEDS ORDERED: traMADol HCL 50 MG TABLET PO ONE (12:00)
[2017-11-29] MEDS ORDERED: traMADol HCL 50 MG TABLET ONE (12:01)
--- NOTE | 2017-11-29 12:23 | PDOC ---
History of Present Illness - General History Source: Patient Exam Limitations: No Limitations - History of Present Illness Initial Comments: 11/29/17 12:19 69-year-old female history of hypertension and recent right knee surgery on November 11 here today with 2 falls this week. Patient states she had a fall 4 days ago at which time she tripped walker at that time her family was present they were able to help her into her bed patient was unable to do much physical activity following that however yesterday the patient had a second fall she was again walking with her walker which got caught she tripped and fell down she was unable to stand following due to severe back pain with assistance of her son who stopped by to help her she was able to get up and into the bed today she was able to ambulate to the bathroom but had severe pain while trying to ambulate. No new weakness numbness or tingling in her legs no fever or chills back pain is centrally located in the lower back <Gloria Denis - Last Filed: 11/29/17 14:48> <Philippe Dunaway - Last Filed: 11/29/17 14:51> - General Chief Complaint: Pain, Acute Stated Complaint: LOWER BACK PAIN Time Seen by Provider: 11/29/17 11:58 Past History - Past Medical History Anemia: No Asthma: No Cancer: No Cardiac Disorders: No CVA: No COPD: No CHF: No Dementia: No Diabetes: No GI Disorders: No Disorders: Yes (stress incontinence) HTN: Yes Hypercholesterolemia: No Liver Disease: No Seizures: No Thyroid Disease: No - Surgical History Abdominal Surgery: Yes (HERNIA x 2) Cholecystectomy: Yes - Suicide/Smoking/Psychosocial Hx Smoking Status: Yes Smoking History: Former smoker Have you smoked in the past 12 months: No Number of Cigarettes Smoked Daily: 0 If you are a former smoker, when did you quit?: 40 years ago Information on smoking cessation initiated: No Hx Alcohol Use: No Drug/Substance Use Hx: No Substance Use Type: None Hx Substance Use Treatment: Yes <Gloria Denis - Last Filed: 11/29/17 14:48> <Philippe Dunaway - Last Filed: 11/29/17 14:51> - Past Medical History Allergies/Adverse Reactions: Allergies Allergy/AdvReac Type Severity Reaction Status Date / Time No Known Allergies Allergy Verified 11/29/17 12:03 Home Medications: Ambulatory Orders Losartan Potassium [Cozaar -] 25 mg PO DAILY 07/12/16 Metoprolol Succinate [Toprol Xl] 100 mg PO DAILY 07/12/16 Ascorbic Acid [Vitamin C -] 500 mg PO BID tablet 11/12/17 Aspirin [ASA -] 325 mg PO DAILY@0800 tablet 11/12/17 Celecoxib [CeleBREX -] 200 mg PO DAILY #30 capsule 11/12/17 Cephalexin Monohydrate [Keflex -] 500 mg PO TID #30 capsule 11/12/17 Multivitamins [Multivit ([facility] Formulary)] 1 tab PO DAILY tab 11/12/17 Oxycodone HCl/Acetaminophen [Percocet 5-325 mg Tablet] 1 - 2 tab PO Q4H PRN #60 tablet MDD 10 11/12/17 Pantoprazole Sodium [Protonix -] 40 mg PO DAILY #40 tablet.ec 11/12/17 Sennosides/Docusate Sodium [Pericolace -] 1 tablet PO BID tablet 11/12/17 traMADol HCL [Ultram -] 50 mg PO Q4H PRN #42 tablet MDD 6 11/12/17 Review of Systems - Review of Systems Constitutional: No: Chills, Diaphoresis, Fever Respiratory: No: Orthopnea, Shortness of Breath : No: Burning, Dysuria Musculoskeletal: Yes: Back Pain. No: Muscle Weakness Integumentary: No: Bruising, Change in Color All Other Systems: Reviewed and Negative <Gloria Denis - Last Filed: 11/29/17 14:48> *Physical Exam - Vital Signs Last Vital Signs Temp Pulse Resp BP Pulse Ox 98.6 F 67 18 182/89 96 11/29/17 11:48 11/29/17 11:48 11/29/17 11:48 11/29/17 11:48 11/29/17 11:48 - Physical Exam General Appearance: Yes: Appropriately Dressed HEENT: positive: Normal ENT Inspection Neck: positive: Trachea midline Respiratory/Chest: positive: Lungs Clear, Normal Breath Sounds Cardiovascular: positive: Regular Rhythm, Regular Rate, S1, S2 Gastrointestinal/Abdominal: positive: Normal Bowel Sounds, Flat. negative: Tender Musculoskeletal: positive: Vertebral Tenderness, Other (low back nonspecific tenderness. 5/5 bilat lower ext strength. sensation intact. right knee incision cdi. no erythema. bilat lower nonpitting edema. ). negative: CVA Tenderness, CVA Tenderness (R), CVA Tenderness (L) <Gloria Denis - Last Filed: 11/29/17 14:48> - Vital Signs Last Vital Signs Temp Pulse Resp BP Pulse Ox 98.6 F 67 18 182/89 96 11/29/17 11:48 11/29/17 11:48 11/29/17 11:48 11/29/17 11:48 11/29/17 11:48 <Philippe Dunaway - Last Filed: 11/29/17 14:51> Heart Score/ECG Review #1 General ECG Interpretation: Sinus Rhythm, Normal Rate (61), Normal Intervals, No acute ischemic changes (TWI III, flat AVF) <Gloria Denis - Last Filed: 11/29/17 14:48> ED Treatment Course - LABORATORY CBC & Chemistry Diagram: 11/29/17 12:46 11/29/17 14:02 - RADIOLOGY Radiology Studies Ordered: Category Date Time Status SPINE-LUMBAR SACRAL [RAD] Stat Radiology 11/29/17 12:01 Ordered - Medications Given in the ED: ED Medications Discontinued Medications Generic Name Dose Route Start Last Admin Trade Name Freq PRN Reason Stop Dose Admin Tramadol HCl 50 mg 11/29/17 12:00 11/29/17 12:03 Ultram - PO 11/29/17 12:01 50 mg ONCE ONE Administration <Gloria Denis - Last Filed: 11/29/17 14:48> - LABORATORY CBC & Chemistry Diagram: 11/29/17 12:46 11/29/17 14:02 - ADDITIONAL ORDERS Additional order review: Laboratory Results 11/29/17 11/29/17 11/29/17 14:02 12:46 12:24 Sodium 139 Potassium 3.5 Chloride 105 Carbon Dioxide 27 Anion Gap 7 L BUN 12 Creatinine 0.7 Creat Clearance w eGFR > 60 Random Glucose 101 D Calcium 8.7 Total Bilirubin 0.5 AST 21 ALT 20 Alkaline Phosphatase 85 Creatine Kinase 42 Cancelled Troponin I Cancelled B-Natriuretic Peptide Cancelled Total Protein 6.7 Albumin 3.6 Urine Color Yellow Urine Appearance Clear Urine pH 7.0 Ur Specific [place] 1.010 Urine Protein Negative Urine Glucose (UA) Negative Urine Ketones Negative Urine Blood Trace-intact H Urine Nitrite Negative Urine Bilirubin Negative Urine Urobilinogen 0.2 Ur Leukocyte Esterase Negative Urine RBC 0-2 Ur Epithelial Cells Few 11/29/17 12:46 RBC 4.11 MCV 90.5 MCHC 35.3 RDW 12.6 MPV 8.5 Neutrophils % 60.5 Lymphocytes % 24.6 Monocytes % 9.1 Eosinophils % 4.6 H Basophils % 1.2 - Medications Given in the ED: ED Medications Discontinued Medications Generic Name Dose Route Start Last Admin Trade Name Danielle PRN Reason Stop Dose Admin Oxycodone/Acetaminophen 1 combo 11/29/17 12:24 11/29/17 14:03 Percocet 5/325 - PO 11/29/17 12:25 1 combo ONCE ONE Administration Tramadol HCl 50 mg 11/29/17 12:00 11/29/17 12:03 Ultram - PO 11/29/17 12:01 50 mg ONCE ONE Administration <Philippe Dunaway - Last Filed: 11/29/17 14:51> Medical Decision Making - Medical Decision Making 11/29/17 12:23 77 yo F with recent knee surgery here s/p 2 falls last 4 days. currently unable to walk due to severe pain. plan pain control. xray r/o fracture. basic labs and ua to loosk for other causes of weakness such as infection or anemia, or electrlyte abnormality. 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 pain improved wtih tramadol. pt offered admission for concerns for safety due to falls in home. pt states she would like to go home. nick has been picked up off floor. her grandson has agreed to stay with her to assist. her. she will be dc via ambulette to help get in the house. and her grandson will meet her there. d/w pcp dr. more, will followup with pt and see her next week. labs ekg all unremarkable. <Gloria Denis - Last Filed: 11/29/17 14:48> - Medical Decision Making 11/29/17 14:32 First call placed to Dr. More. Awaiting call back. Case discussed with Dr. More at 14:46. Agreed to discharge. <Philippe Dunaway - Last Filed: 11/29/17 14:51> *DC/Admit/Observation/Transfer - Discharge Dispostion Decision to Admit order: No <Gloria Denis - Last Filed: 11/29/17 14:48> - Attestations Scribe Attestion: 11/29/17 14:33 Documentation prepared by Philippe Dunaway, acting as medical surgery nurse for Gloria Denis MD. <Philippe Dunaway - Last Filed: 11/29/17 14:51> Diagnosis at time of Disposition: Low back strain - Discharge Dispostion Disposition: HOME Condition at time of disposition: Stable - Referrals Referrals: Tonia More MD [Primary Care Provider] - - Patient Instructions Printed Discharge Instructions: Back Pain (Alternative Therapy) Additional Instructions: you should follow up wt dr. more, call saturday to schedule. return for any problems or concerns such as fever, weakness numbness or any recurrent falling. - Post Discharge Activity
[2017-11-29 13:26] LABS: URINE APPEARANCE Clear; URINE BILIRUBIN Negative (NEGATIVE); URINE GLUCOSE (UA) Negative (NEGATIVE); URINE KETONE Negative (NEGATIVE); URINE LEUK ESTERASE Negative (NEGATIVE); URINE NITRITE Negative (NEGATIVE); URINE PROTEIN Negative (NEGATIVE); URINE UROBILINOGEN 0.2 (0.2-1.0)
[2017-11-29 13:30] LABS: URINE COLOR YELLOW
[2017-11-29 13:31] LABS: BASO % 1.2 % (0-2.0); EOS % 4.6 % (0-4.5); HEMATOCRIT 37.2 % (32.4-45.2); HEMOGLOBIN 13.1 GM/dl (10.7-15.3); LYMPH % 24.6 % (8-40); MCH 31.9 pg (25.7-33.7); MCHC 35.3 g/dl (32.0-36.0); MEAN CELL VOLUME 90.5 fl (80-96); MEAN PLT VOLUME 8.5 fl (7.5-11.1); MONO % 9.1 % (3.8-10.2); NEUT % 60.5 % (42.8-82.8); PLATELET COUNT 281 K/MM3 (134-434); RBC 4.11 M/mm3 (3.60-5.2); RDW 12.6 % (11.6-15.6); WHITE BLOOD COUNT 6.5 K/mm3 (4.0-10.8)
[2017-11-29 13:53] LABS: EPI CELLS FEW /HPF; URINE RBC 0-2 /hpf (0-3)
[2017-11-29 14:26] LABS: ALBUMIN 3.6 g/dl (3.5-5.0); ALK PHOS 85 U/L (32-92); ANION GAP 7 (8-16); BILIRUBIN,TOTAL 0.5 mg/dl (0.2-1.0); BLOOD UREA NITROGEN 12 mg/dl (7-18); CALCIUM 8.7 mg/dl (8.4-10.2); CHLORIDE 105 mmol/L (98-107); CO2 27 mmol/L (22-28); CREATININE 0.7 mg/dl (0.6-1.3); GLUCOSE,RANDOM 101 mg/dl (74-106); POTASSIUM 3.5 mmol/L (3.5-5.1); SGOT/AST 21 U/L (10-42); SGPT/ALT 20 U/L (10-40); SODIUM 139 mmol/L (136-145); TOT PROT 6.7 g/dl (6.4-8.3)
[2017-11-29 14:44] VITALS: BP 165/88; PULSE 63
[2017-11-29 23:45] LABS: N-TERMINAL BNP 263.82 pg/ml (5-450)
--- NOTE | 2017-12-02 22:10 | EKG ---
Test Reason : Blood Pressure : / mmHG Vent. Rate : 061 BPM Atrial Rate : 061 BPM P-R Int : 164 ms QRS Dur : 092 ms QT Int : 432 ms P-R-T Axes : 015 007 007 degrees QTc Int : 434 ms NORMAL SINUS RHYTHM NORMAL ECG WHEN COMPARED WITH ECG OF 11-OCT-2010 15:10, NO SIGNIFICANT CHANGE WAS FOUND Confirmed by MARILYN NAVAS MD ([id number]) on 12/02/2017 10:09:39 PM Referred By: SABRINA SALAS Confirmed By:MARILYN NAVAS MD
== END 2017-11-29 16:55 | disposition home or self-care (01) ==
LOC: FER 11:47
DX: S39.012A Strain of muscle, fascia and tendon of lower back, initial encounter (principal); W18.09XA Striking against other object with subsequent fall, initial encounter; Y93.89 Activity, other specified; Y92.9 Unspecified place or not applicable; I10 Essential (primary) hypertension; Z87.891 Personal history of nicotine dependence
CPT/HCPCS: 36415; 71046-TC-FY; 72100-TC-FY; 73560-TC-RT-FY; 80053; 81003; 81015; 82550; 83880; 84484; 85025; 93005; 99283-25

== ENCOUNTER 2021-01-10 11:34 | Emergency (ER) | payer OTHER ==
[2021-01-10 11:53] VITALS: TEMP 97.9; BMI 33.6
[2021-01-10] MEDS ORDERED: ACETAMINOPHEN 500 MG TABLET (FP) PO ONE ×2 (12:49→18:43)
[2021-01-10] MEDS ORDERED: ACETAMINOPHEN 325 MG TABLET (FP) ONE ×2 (13:04→18:58)
[2021-01-10] MEDS ORDERED: LABETALOL HCL 5 MG/1 ML (100MG/20 ML VIAL) IVPUSH ONE (13:24)
[2021-01-10] MEDS ORDERED: SODIUM CHLORIDE 0.9% 500 ML INFUS.BAG IV ONE (13:34)
[2021-01-10] MEDS ORDERED: LABETALOL HCL 5 MG/1 ML (100MG/20 ML VIAL) ONE (13:46)
[2021-01-10 14:21] LABS: BASO % 1.2 % (0-2.0); EOS % 2.6 % (0-4.5); HEMATOCRIT 41.7 % (32.4-45.2); HEMOGLOBIN 14.8 GM/dL (10.7-15.3); LYMPH % 38.2 % (8-40); MCH 31.8 pg (25.7-33.7); MCHC 35.5 g/dl (32.0-36.0); MEAN CELL VOLUME 89.4 fl (80-96); MEAN PLT VOLUME 8.1 fl (7.5-11.1); MONO % 9.8 % (3.8-10.2); NEUT % 48.2 % (42.8-82.8); PLATELET COUNT 266 10^3/uL (134-434); RBC 4.66 M/mm3 (3.60-5.2); RDW 13.1 % (11.6-15.6); WHITE BLOOD COUNT 6.8 K/mm3 (4.0-10.0)
[2021-01-10 14:28] LABS: INR 0.97 (0.83-1.09); PROTHROMBIN TIME (PATIENT) 11.9 SEC (9.7-13.0)
[2021-01-10 14:30] LABS: ACTIVATED PTT 30.5 SECONDS (25.2-36.5)
[2021-01-10 14:44] LABS: ALBUMIN 3.8 g/dl (3.4-5.0); BLOOD UREA NITROGEN 13.7 mg/dL (7-18); CALCIUM 8.8 mg/dL (8.5-10.1)
[2021-01-10 14:47] LABS: CREATININE 0.8 mg/dL (0.55-1.3)
[2021-01-10 14:49] LABS: BILIRUBIN,TOTAL 0.5 mg/dL (0.2-1); TOT PROT 7.6 g/dl (6.4-8.2)
[2021-01-10 14:52] LABS: N-TERMINAL BNP 118.4 pg/ml (5-450)
[2021-01-10] MEDS ORDERED: LIDOCAINE 5% TOPICAL PATCH TP ONE (15:03)
[2021-01-10] MEDS ORDERED: LIDOCAINE 5% TOPICAL PATCH ONE (15:48)
[2021-01-10] MEDS ORDERED: diazePAM 2 MG TABLET ONE (15:51)
[2021-01-10] MEDS ORDERED: diazePAM 2 MG TABLET PO ONE (16:00)
[2021-01-10] MEDS ORDERED: VALSARTAN 160 MG TABLET PO ONE (16:08)
[2021-01-10] MEDS ORDERED: VALSARTAN 80 MG TABLET ONE (16:11)
[2021-01-10 19:46] VITALS: BP 181/94; PULSE 64
[2021-01-10] MEDS ORDERED: LIDOCAINE PATCH REMOVAL MC SCH (22:00)
== END 2021-01-10 19:05 | disposition home or self-care (01) ==
LOC: JER 11:34
DX: M54.6 Pain in thoracic spine (principal); M62.830 Muscle spasm of back
CPT/HCPCS: 36415; 71045-TC-FY; 71275-TC; 74174-TC; 80053; 82550; 83880; 84484; 85025; 85610; 85730; 86850; 86900; 86901; 93005; 93010; 99283-25; Q9967

== ENCOUNTER 2021-08-24 07:08 | Emergency (ER) | payer OTHER ==
[2021-08-24 07:26] VITALS: TEMP 98.1; BMI 26.5
[2021-08-24] MEDS ORDERED: ACETAMINOPHEN 500 MG TABLET (FP) PO ONE (07:46)
[2021-08-24] MEDS ORDERED: ACETAMINOPHEN 325 MG TABLET (FP) ONE (08:02)
[2021-08-24 08:59] LABS: BASO % 0.5 % (0-2.0); EOS % 0.7 % (0-4.5); HEMATOCRIT 39.5 % (32.4-45.2); HEMOGLOBIN 13.9 GM/dL (10.7-15.3); MCH 31.4 pg (25.7-33.7); MCHC 35.1 g/dl (32.0-36.0); MEAN CELL VOLUME 89.5 fl (80-96); MEAN PLT VOLUME 8.5 fl (7.5-11.1); MONO % 11.1 % (3.8-10.2); NEUT % 52.7 % (42.8-82.8); PLATELET COUNT 209 10^3/uL (134-434); RBC 4.42 M/mm3 (3.60-5.2); RDW 13.1 % (11.6-15.6); WHITE BLOOD COUNT 4.8 K/mm3 (4.0-10.0)
[2021-08-24 09:20] LABS: ALBUMIN 3.8 g/dl (3.4-5.0); CALCIUM 9.3 mg/dL (8.5-10.1)
[2021-08-24 09:21] LABS: BLOOD UREA NITROGEN 16.8 mg/dL (7-18)
[2021-08-24 09:23] LABS: CREATININE 0.9 mg/dL (0.55-1.3)
[2021-08-24 09:25] LABS: BILIRUBIN,TOTAL 0.6 mg/dL (0.2-1); TOT PROT 7.8 g/dl (6.4-8.2)
[2021-08-24 09:28] LABS: N-TERMINAL BNP 135.9 pg/ml (5-450)
[2021-08-24 11:18] VITALS: BP 135/73; PULSE 68
== END 2021-08-24 11:18 | disposition home or self-care (01) ==
LOC: JER 07:08
DX: M79.605 Pain in left leg (principal)
CPT/HCPCS: 36415; 71046-TC-FY; 73502-TC-LT-FY; 73560-TC-LT-FY; 73590-TC-LT-FY; 73610-TC-LT-FY; 73630-TC-LT; 80053; 83880; 85025; 93005; 93010; 93971-TC; 99285-25

== ENCOUNTER 2023-03-22 10:30 | Observation (INO) | payer OTHER ==
[2023-03-22 10:40] VITALS: BMI 32.4
[2023-03-22 13:05] LABS: INR 1.08 (0.83-1.09); PROTHROMBIN TIME (PATIENT) 12.5 SEC (9.7-13.0)
[2023-03-22 13:43] LABS: ALBUMIN 3.6 g/dl (3.4-5.0); BILIRUBIN,TOTAL 0.6 mg/dL (0.2-1); BLOOD UREA NITROGEN 19.3 mg/dL (7-18); CALCIUM 9.3 mg/dL (8.5-10.1); POTASSIUM 4.1 mmol/L (3.5-5.1); TOT PROT 7.3 g/dl (6.4-8.2)
[2023-03-22 13:46] LABS: BASO % 1.3 % (0-2.0); EOS % 2.3 % (0-4.5); HEMATOCRIT 39.7 % (32.4-45.2); HEMOGLOBIN 14.3 GM/dL (10.7-15.3); LYMPH % 34.3 % (8-40); MEAN CELL VOLUME 88.8 fl (80-96); MEAN PLT VOLUME 7.8 fl (7.5-11.1); MONO % 9.1 % (3.8-10.2); PLATELET COUNT 261 10^3/uL (134-434); RBC 4.47 M/mm3 (3.60-5.2); WHITE BLOOD COUNT 6.6 K/mm3 (4.0-10.0)
[2023-03-22 17:01] LABS: URINE APPEARANCE CLEAR; URINE BILIRUBIN NEGATIVE (NEGATIVE); URINE COLOR YELLOW; URINE GLUCOSE (UA) NEGATIVE (NEGATIVE); URINE KETONE NEGATIVE (NEGATIVE); URINE LEUK ESTERASE NEGATIVE (NEGATIVE); URINE NITRITE NEGATIVE (NEGATIVE); URINE PROTEIN NEGATIVE (NEGATIVE); URINE UROBILINOGEN 0.2 mg/dL (0.2-1.0)
[2023-03-22] MEDS ORDERED: ACETAMINOPHEN 325 MG TABLET (FP) PO PRN (20:26)
[2023-03-23] MEDS ORDERED: VALSARTAN 160 MG TABLET PO ONE (02:22)
[2023-03-23 03:05] LABS: HEMATOCRIT 38.3 % (32.4-45.2); HEMOGLOBIN 13.7 GM/dL (10.7-15.3); MCH 31.6 pg (25.7-33.7); MCHC 35.9 g/dl (32.0-36.0); MEAN CELL VOLUME 88.3 fl (80-96); MEAN PLT VOLUME 7.5 fl (7.5-11.1); PLATELET COUNT 256 10^3/uL (134-434); RBC 4.34 M/mm3 (3.60-5.2); RDW 13.3 % (11.6-15.6); WHITE BLOOD COUNT 6.6 K/mm3 (4.0-10.0)
[2023-03-23 08:19] LABS: BASO % 0.6 % (0-2.0); EOS % 1.9 % (0-4.5); HEMATOCRIT 40.7 % (32.4-45.2); HEMOGLOBIN 14.2 GM/dL (10.7-15.3); LYMPH % 37.3 % (8-40); MCH 31.5 pg (25.7-33.7); MCHC 34.8 g/dl (32.0-36.0); MEAN CELL VOLUME 90.4 fl (80-96); MEAN PLT VOLUME 8.1 fl (7.5-11.1); MONO % 10.2 % (3.8-10.2); PLATELET COUNT 276 10^3/uL (134-434); WHITE BLOOD COUNT 6.9 K/mm3 (4.0-10.0)
[2023-03-23 08:27] LABS: POTASSIUM 3.1 mmol/L (3.5-5.1)
[2023-03-23 08:36] LABS: BLOOD UREA NITROGEN 17.6 mg/dL (7-18); CALCIUM 9.3 mg/dL (8.5-10.1)
[2023-03-23 08:38] LABS: MAGNESIUM 1.9 mg/dL (1.8-2.4)
[2023-03-23 08:39] LABS: CREATININE 1.1 mg/dL (0.55-1.3); PHOSPHOROUS 3.1 mg/dL (2.5-4.9)
[2023-03-23] MEDS ORDERED: VALSARTAN 160 MG TABLET PO SCH (10:00)
[2023-03-23] MEDS ORDERED: POTASSIUM CHLORIDE ORAL LIQUID 20 MEQ/15 ML PO ONE (10:45)
[2023-03-23] MEDS: HYDROCHLOROTHIAZIDE 25 MG TABLET (FP) PO SCH (11:02)
[2023-03-23] MEDS: METOPROLOL TARTRATE 50 MG TABLET (FP) PO SCH (11:02)
[2023-03-23] MEDS: MULTIVITAMINS (DAILY MVI) TABLET (FP) PO SCH (11:02)
[2023-03-23] MEDS: ASCORBIC ACID 500 MG TABLET (FP) PO SCH ×2 (11:03→22:05)
[2023-03-24] MEDS: METOPROLOL TARTRATE 50 MG TABLET (FP) PO SCH (09:13)
[2023-03-24] MEDS: MULTIVITAMINS (DAILY MVI) TABLET (FP) PO SCH (09:13)
[2023-03-24] MEDS: VALSARTAN 160 MG TABLET PO SCH (09:14)
[2023-03-24] MEDS: ASCORBIC ACID 500 MG TABLET (FP) PO SCH ×2 (09:14→21:47)
[2023-03-24] MEDS: HYDROCHLOROTHIAZIDE 25 MG TABLET (FP) PO SCH (09:14)
[2023-03-24 10:18] LABS: BASO % 0.5 % (0-2.0); EOS % 2.7 % (0-4.5); HEMATOCRIT 39.2 % (32.4-45.2); HEMOGLOBIN 13.5 GM/dL (10.7-15.3); LYMPH % 40.8 % (8-40); MCH 31.5 pg (25.7-33.7); MCHC 34.6 g/dl (32.0-36.0); MEAN PLT VOLUME 8.2 fl (7.5-11.1); MONO % 9.2 % (3.8-10.2); NEUT % 46.8 % (42.8-82.8); PLATELET COUNT 235 10^3/uL (134-434); RDW 13.5 % (11.6-15.6); WHITE BLOOD COUNT 6.1 K/mm3 (4.0-10.0)
[2023-03-24 10:38] LABS: POTASSIUM 3.4 mmol/L (3.5-5.1)
[2023-03-24] MEDS ORDERED: PROMETHAZINE HCL 25 MG/1 ML VIAL IVPB PRN (10:39)
[2023-03-24] MEDS ORDERED: ONDANSETRON 4 MG/2 ML VIAL IVPUSH PRN (10:39)
[2023-03-24 10:43] LABS: ALBUMIN 3.4 g/dl (3.4-5.0); BLOOD UREA NITROGEN 13.7 mg/dL (7-18); CALCIUM 9.2 mg/dL (8.5-10.1)
[2023-03-24] MEDS ORDERED: LACTATED RINGERS SOLUTION 1,000 ML IV SCH (10:45)
[2023-03-24 10:47] LABS: BILIRUBIN,TOTAL 0.7 mg/dL (0.2-1); CREATININE 0.9 mg/dL (0.55-1.3)
[2023-03-24 10:48] LABS: TOT PROT 6.7 g/dl (6.4-8.2)
[2023-03-24] MEDS ORDERED: POTASSIUM CHLORIDE ORAL LIQUID 20 MEQ/15 ML PO ONE (11:30)
[2023-03-25 09:39] LABS: HEMOGLOBIN 14.1 GM/dL (10.7-15.3); MCH 31.8 pg (25.7-33.7); MCHC 36.1 g/dl (32.0-36.0); MEAN CELL VOLUME 88.1 fl (80-96); PLATELET COUNT 245 10^3/uL (134-434); RBC 4.43 M/mm3 (3.60-5.2); RDW 13.3 % (11.6-15.6); WHITE BLOOD COUNT 5.8 K/mm3 (4.0-10.0)
[2023-03-25] MEDS: HYDROCHLOROTHIAZIDE 25 MG TABLET (FP) PO SCH (10:23)
[2023-03-25] MEDS: METOPROLOL TARTRATE 50 MG TABLET (FP) PO SCH (10:23)
[2023-03-25] MEDS: ASCORBIC ACID 500 MG TABLET (FP) PO SCH ×2 (10:23→22:54)
[2023-03-25] MEDS: MULTIVITAMINS (DAILY MVI) TABLET (FP) PO SCH (10:24)
[2023-03-25] MEDS: VALSARTAN 160 MG TABLET PO SCH (10:24)
[2023-03-25] MEDS ORDERED: BISACODYL 5 MG TABLET.DR (FP) PO ONE (16:00)
[2023-03-25] MEDS ORDERED: PEG 3350/NA SULF BICARB CL/KCL 4000 ML SOLN.RECON PO ONE (17:00)
[2023-03-26] MEDS: HYDROCHLOROTHIAZIDE 25 MG TABLET (FP) PO SCH (09:23)
[2023-03-26] MEDS: VALSARTAN 160 MG TABLET PO SCH (09:23)
[2023-03-26] MEDS: ASCORBIC ACID 500 MG TABLET (FP) PO SCH (09:24)
[2023-03-26] MEDS: MULTIVITAMINS (DAILY MVI) TABLET (FP) PO SCH (09:25)
[2023-03-26] MEDS: METOPROLOL TARTRATE 50 MG TABLET (FP) PO SCH (09:25)
[2023-03-26 10:29] LABS: BASO % 0.4 % (0-2.0); EOS % 1.2 % (0-4.5); HEMATOCRIT 40.2 % (32.4-45.2); HEMOGLOBIN 14.1 GM/dL (10.7-15.3); LYMPH % 31.6 % (8-40); MCH 31.3 pg (25.7-33.7); MCHC 35.1 g/dl (32.0-36.0); MEAN CELL VOLUME 89.2 fl (80-96); MEAN PLT VOLUME 8.2 fl (7.5-11.1); MONO % 10.7 % (3.8-10.2); NEUT % 56.1 % (42.8-82.8); PLATELET COUNT 257 10^3/uL (134-434); RDW 12.9 % (11.6-15.6)
[2023-03-26 10:44] LABS: POTASSIUM 3.4 mmol/L (3.5-5.1)
[2023-03-26 11:00] LABS: BLOOD UREA NITROGEN 23.7 mg/dL (7-18)
[2023-03-26 11:02] LABS: CALCIUM 9.5 mg/dL (8.5-10.1)
[2023-03-26 11:03] LABS: CREATININE 1.5 mg/dL (0.55-1.3)
[2023-03-26 12:43] VITALS: RESP 20
[2023-03-26 13:29] VITALS: BP 166/88; PULSE 68; TEMP 98.2
== END 2023-03-26 17:20 | disposition home or self-care (01) ==
LOC: JER 10:30 → JERBED 18:02 → J8W 23:31
PROVIDERS: ADMIT Internal Medicine; ATTEND Internal Medicine
PROC: 0DBK8ZX Excision of Ascending Colon, Via Natural or Artificial Opening Endoscopic, Diagnostic (ICD-10-PCS; principal; 2023-03-26 12:00)
DX: K57.90 Diverticulosis of intestine, part unspecified, without perforation or abscess without bleeding (principal); R10.32 Left lower quadrant pain; K76.0 Fatty (change of) liver, not elsewhere classified; I50.9 Heart failure, unspecified; K62.5 Hemorrhage of anus and rectum; Z80.0 Family history of malignant neoplasm of digestive organs; Z87.891 Personal history of nicotine dependence
CPT/HCPCS: 36415; 74177-TC; 80048; 80053; 81003; 83735; 84100; 85025; 85027; 85610; 85730; 86850; 86900; 86901; 87077; 87086; 88305-TC; 93005; 93010; 99285-25; G0378; Q9967

== ENCOUNTER 2023-04-21 18:29 | Emergency (ER) | payer OTHER ==
[2023-04-21 18:33] VITALS: TEMP 98.1; BMI 32.1
[2023-04-21] MEDS ORDERED: ACETAMINOPHEN 1000 MG/100 ML BAG IVPB ONE (19:44)
[2023-04-21] MEDS ORDERED: ACETAMINOPHEN INJECTION 100 ML IVPB ONE (19:49)
[2023-04-21 20:28] LABS: BASO % 0.3 % (0-2.0); EOS % 0.4 % (0-4.5); HEMATOCRIT 34.8 % (32.4-45.2); HEMOGLOBIN 11.6 GM/dL (10.7-15.3); LYMPH % 19.9 % (8-40); MCH 30.4 pg (25.7-33.7); MCHC 33.5 g/dl (32.0-36.0); MEAN CELL VOLUME 90.8 fl (80-96); MEAN PLT VOLUME 9.2 fl (7.5-11.1); MONO % 13.1 % (3.8-10.2); NEUT % 66.3 % (42.8-82.8); PLATELET COUNT 229 10^3/uL (134-434); RBC 3.83 M/mm3 (3.60-5.2); RDW 13.1 % (11.6-15.6); WHITE BLOOD COUNT 11.1 K/mm3 (4.0-10.0)
[2023-04-21] MEDS ORDERED: SODIUM CHLORIDE 0.9% 500 ML INFUS.BAG IV ONE (20:54)
[2023-04-21 20:55] LABS: ALBUMIN 2.8 g/dl (3.4-5.0); CALCIUM 9.2 mg/dL (8.5-10.1)
[2023-04-21] MEDS ORDERED: morphine CARPU-JECT 2 MG/1 ML DISP.SYRIN IVPUSH ONE (20:55)
[2023-04-21 20:56] LABS: BLOOD UREA NITROGEN 51.7 mg/dL (7-18)
[2023-04-21 21:00] LABS: BILIRUBIN,TOTAL 0.9 mg/dL (0.2-1); TOT PROT 6.2 g/dl (6.4-8.2)
[2023-04-21] MEDS ORDERED: POTASSIUM CHLORIDE TABS 20 MEQ TABLET.ER (FP) PO ONE ×2 (21:18→22:07)
[2023-04-21] MEDS ORDERED: MAGNESIUM SULF 50% (8.12 MEQ/2 ML-1 GM VIAL) IVPB ONE (21:18)
[2023-04-21] MEDS ORDERED: ASPIRIN 81 MG CHEWABLE TABLETS PO ONE (21:18)
[2023-04-21] MEDS ORDERED: HEPARIN NA (PORCINE) 5,000 UNITS/ML 1ML VIAL IVPUSH PRN (21:19)
[2023-04-21] MEDS ORDERED: CLOPIDOGREL BISULFATE 300 MG TABLET PO ONE (21:23)
[2023-04-21 22:06] VITALS: BP 110/68; PULSE 70; RESP 18
[2023-04-21] MEDS ORDERED: CLOPIDOGREL BISULFATE 300 MG TABLET ONE (22:07)
[2023-04-21] MEDS ORDERED: ASPIRIN 81 MG CHEWABLE TABLETS ONE (22:08)
[2023-04-21] MEDS ORDERED: MAGNESIUM SULFATE IN WATER 2 GM/50 ML IVPB IVPB ONE (22:08)
[2023-04-21] MEDS ORDERED: HEPARIN NA (PORCINE) 5,000 UNITS/ML 1ML VIAL ONE (22:10)
== END 2023-04-21 22:31 | disposition short-term general hospital (02) ==
LOC: JER 18:29
PROC: 3E033NZ Introduction of Analgesics, Hypnotics, Sedatives into Peripheral Vein, Percutaneous Approach (ICD-10-PCS; principal; 2023-04-21)
PROC: 3E033GC Introduction of Other Therapeutic Substance into Peripheral Vein, Percutaneous Approach (ICD-10-PCS; 2023-04-21)
PROC: 3E033GC Introduction of Other Therapeutic Substance into Peripheral Vein, Percutaneous Approach (ICD-10-PCS; 2023-04-21)
DX: R10.9 Unspecified abdominal pain (principal); I21.3 ST elevation (STEMI) myocardial infarction of unspecified site; N93.9 Abnormal uterine and vaginal bleeding, unspecified
CPT/HCPCS: 36415; 70450-TC; 71045-TC-FY; 71275-TC; 73502-TC-LT-FY; 74174-TC; 74176-TC; 80053; 84484; 85025; 93005; 93010; 99285-25

== ENCOUNTER 2025-01-19 16:20 | Observation (INO) | payer OTHER ==
[2025-01-19 17:33] LABS: ABSOLUTE IMMATURE GRANULOCYTES 0.02 x10^3/uL (0.0-0.031); BASOPHILS # 0.04 x10^3/uL (0.01-0.08); EOSINOPHIL % 4.0 % (0.7-5.8); EOSINOPHILS # 0.24 x10^3/uL (0.04-0.36); MCHC 32.7 g/dl (32.2-35.5); MEAN CELL VOLUME 87.6 fl (79.4-94.8); MEAN PLT VOLUME 9.6 fl (9.4-12.3); MONOCYTE # 0.72 x10^3/uL (0.24-0.86); MONOCYTE % 11.9 % (4.7-12.5); RDW 13.8 % (12.5-17.0)
[2025-01-19 17:45] LABS: INR 1.03 (0.83-1.09); PROTHROMBIN TIME (PATIENT) 11.3 SEC (9.7-13.0)
[2025-01-19 17:52] LABS: GLUCOSE,RANDOM 120.0 mg/dL (74-106); TOT PROT 7.0 g/dl (6.4-8.2)
[2025-01-19 17:53] LABS: CO2 24.0 mmol/L (21-32)
[2025-01-19 17:54] LABS: ALK PHOS 92.0 U/L (40-150)
[2025-01-19 17:57] LABS: SGOT/AST 24.0 U/L (5-34); SGPT/ALT 25.0 U/L (0-55)
[2025-01-19 17:58] LABS: CREATININE 0.86 mg/dL (0.55-1.3)
[2025-01-19 20:25] LABS: N-TERMINAL BNP 620.0 pg/mL (0-299.9)
[2025-01-20 00:23] VITALS: BMI 33.7
[2025-01-20] MEDS: VALSARTAN 80 MG TABLET PO SCH (00:37)
[2025-01-20] MEDS: ATORVASTATIN CA 80 MG TABLET (FP) PO SCH (00:37)
[2025-01-20 07:23] LABS: ABSOLUTE IMMATURE GRANULOCYTES 0.02 x10^3/uL (0.0-0.031); BASOPHILS # 0.04 x10^3/uL (0.01-0.08); EOSINOPHIL % 3.5 % (0.7-5.8); EOSINOPHILS # 0.23 x10^3/uL (0.04-0.36); MCHC 32.9 g/dl (32.2-35.5); MEAN CELL VOLUME 86.6 fl (79.4-94.8); MEAN PLT VOLUME 10.1 fl (9.4-12.3); MONOCYTE # 0.70 x10^3/uL (0.24-0.86); MONOCYTE % 10.5 % (4.7-12.5); RDW 13.8 % (12.5-17.0)
[2025-01-20 07:47] LABS: GLUCOSE,RANDOM 98.0 mg/dL (74-106)
[2025-01-20 07:49] LABS: CO2 26.0 mmol/L (21-32)
[2025-01-20 07:53] LABS: CREATININE 0.77 mg/dL (0.55-1.3)
[2025-01-20] MEDS: ASPIRIN 81 MG CHEWABLE TABLETS PO SCH (09:25)
[2025-01-20] MEDS: GABAPENTIN 100 MG CAPSULE PO ONE (21:08)
[2025-01-21 10:58] VITALS: BP 132/75; PULSE 66; RESP 17; TEMP 97.3
[2025-01-21] MEDS ORDERED: REGADENOSON 0.4 MG/5 ML PRE-FILLED SYRINGE IVPUSH ONE (11:13)
[2025-01-21] MEDS: REGADENOSON 0.4 MG/5 ML PRE-FILLED SYRINGE IVPUSH ONE (11:39)
[2025-01-22 14:06] LABS: HCV DIAGNOSTIC IN-HOUSE W/RFLX NON-REACTIVE (NONREACTIVE)
[2025-01-22 14:07] LABS: HIV INTERPRETATION NEGATIVE (NEGATIVE)
== END 2025-01-21 15:50 | disposition home or self-care (01) ==
LOC: SUATTDRO 16:20 → JER 16:20 → JERBED 17:01 → J4S 22:58
PROVIDERS: ADMIT Internal Medicine; ATTEND Internal Medicine
PROC: 3E033GC Introduction of Other Therapeutic Substance into Peripheral Vein, Percutaneous Approach (ICD-10-PCS; principal; 2025-01-19)
DX: R42 Dizziness and giddiness (principal); R11.10 Vomiting, unspecified; R53.1 Weakness; Z95.5 Presence of coronary angioplasty implant and graft; E78.5 Hyperlipidemia, unspecified; I11.9 Hypertensive heart disease without heart failure; R94.31 Abnormal electrocardiogram [ECG] [EKG]; Z87.891 Personal history of nicotine dependence
CPT/HCPCS: 36415; 71045-TC-FY; 78452-TC; 80048; 80053; 83690; 83880; 84484; 85025; 85610; 86803; 86850; 86900; 86901; 87389; 93005; 93010; 93017; 93306-TC; 96374; 99285-25; A9502; G0378; J2785